=== PATIENT | female | born 1980 | race Hispanic/Latino ===

== ENCOUNTER 2022-08-08 11:23 | Emergency (ER) | payer MEDICAID, OTHER ==
[~2022-08-08] VITALS: Ht 160 cm; Wt 99.8 kg
[2022-08-08 12:59] VITALS: BP 121/74
[2022-08-08] MEDS ORDERED: KETOROLAC 30MG VIAL (30MG/ML) IM ONE (13:00)
[2022-08-08] MEDS ORDERED: IBUP-2070 PO (13:06)
== END 2022-08-08 13:22 | disposition home or self-care (01) ==
LOC: EDH 11:23
DX: S93.402A Sprain of unspecified ligament of left ankle, initial encounter (principal); Z90.49 Acquired absence of other specified parts of digestive tract; X50.1XXA Overexertion from prolonged static or awkward postures, initial encounter; Y93.89 Activity, other specified; Y92.89 Other specified places as the place of occurrence of the external cause; Y99.8 Other external cause status
CPT/HCPCS: 99283; 73600; 96372; J1885